=== PATIENT | female | born 2000 ===

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

== ENCOUNTER → 2019-01-17 21:39 | Outpatient (REF) | payer OTHER, SELFPAY | LOC: LAB 21:39 | PROVIDERS: Visit Provider Naturopath | DX: N39.0 Urinary tract infection, site not specified (principal) | CPT/HCPCS: 87077; 87086; 87186 ==

== ENCOUNTER → 2019-03-08 22:59 | Outpatient (REF) | payer OTHER, MEDICAID, SELFPAY ==
[2019-03-09 01:09] LABS: Add Manual Diff / Slide Review NO; Basophils Absolute Auto 100 /uL (0-100); Eosinophils Absolute Auto 100 /uL (0-450); Eosinophils Percent Auto 1.1 % (2-4); Hematocrit 35.9 % (36-46); Hemoglobin 11.9 g/dL (12.0-16.0); Lymphocytes Absolute Auto 2300 /uL (1100-4500); Lymphocytes Percent Auto 31.5 % (25-40); Mean Corpuscular HGB Conc 33.1 % (30-36); Mean Corpuscular Hemoglobin 29.1 PG (26-34); Mean Corpuscular Volume 87.7 fL (80-100); Monocytes Absolute Auto 600 /uL (0-900); Monocytes Percent Auto 8.6 % (3-14); Neutrophils Absolute Auto 4200 /uL (1500-7000); Neutrophils Percent Auto 57.8 % (50-75); Platelet Count 364 X10^3/uL (150-400); Red Blood Cell Count 4.09 X10^6/uL (4.0-5.2); Red Cell Distribution Width 13.6 % (11.6-14.8); White Blood Cell Count 7.3 X10^3/uL (4.5-11.0)
[2019-03-09 01:44] LABS: Alanine Aminotransferase 21 IU/L (9-52); Albumin 4.2 g/dL (3.5-5.0); Albumin Globulin Ratio 1.3 (1.0-2.8); Alkaline Phosphatase 64 U/L (38-126); Aspartate Aminotransferase 25 IU/L (14-36); BUN Creatinine Ratio 18.3 (6-22); Bilirubin Total 0.4 mg/dL (0.2-1.3); Blood Urea Nitrogen 11 mg/dL (7-17); Calcium 9.8 mg/dL (8.4-10.2); Carbon Dioxide 25 mmol/L (22-32); Chloride 101 mmol/L (98-107); Estimated Glomerular Filt Rate > 60.0 mL/min (>60); Globulin 3.3 g/dL (1.7-4.1); Glucose 83 mg/dL (70-100); HEMOLYSIS < 15 (0-50); Potassium 4.3 mmol/L (3.4-5.1); Sodium 136 mmol/L (137-145); Total Protein 7.5 g/dL (6.3-8.2)
[2019-03-09 11:55] LABS: HEMOLYSIS < 15 (0-50); Iron 89 ug/dL (37-170)
[2019-03-09 12:05] LABS: Percent Iron Saturation 21 % (15-50); Total Iron Binding Capacity 414 ug/dL (265-497); Transferrin 326 mg/dL (206-381)
[2019-03-09 12:31] LABS: Ferritin 7.2 ng/mL (6.27-137)
[2019-03-11 18:55] LABS: ANA Screen, IFA Negative (Negative)
== END ==
LOC: LAB 22:59
PROVIDERS: Visit Provider Naturopath
DX: R30.0 Dysuria (principal); N76.2 Acute vulvitis
CPT/HCPCS: 36415; 80053; 82728; 83540; 83550; 85025; 86038; 87077; 87086; 87186

== ENCOUNTER → 2019-03-09 01:44 | Outpatient (REF) | payer OTHER, SELFPAY | LOC: LAB 01:44 | PROVIDERS: Visit Provider Naturopath | DX: R30.0 Dysuria (principal); N76.2 Acute vulvitis ==